=== PATIENT | female | born 1965 | race Hispanic/Latino ===

== ENCOUNTER 2019-12-27 17:36 | Inpatient (IN) | payer SELFPAY ==
[~2019-12-27] VITALS: Ht 157.5 cm; Wt 87.4 kg
[2019-12-27] MEDS ORDERED: METOPROLOL 5 MG/5 ML VIAL IV SCH (18:15)
[2019-12-27 18:25] LABS: BASO # 0.1 10^3/uL (0.0-0.2); EOS # 0.2 10^3/uL (0.0-0.5); EOS % 2.2 % (0.0-3.0); HEMATOCRIT 28.3 % (36.0-47.0); HEMOGLOBIN 8.5 g/dl (12.0-15.5); LYMPH % 28.3 % (24.0-44.0); MEAN CORPUSCULAR HEMOGLOBIN 27.6 pg (27.0-33.0); MEAN CORPUSCULAR VOLUME 91.9 fl (80.0-96.0); MONO # 0.5 10^3/uL (0.0-0.8); MONO % 6.3 % (0.0-5.0); NEUTROPHILS # 4.4 10^3/uL (1.5-8.5); NEUTROPHILS % 61.4 % (36.0-66.0); PLATELET COUNT, AUTOMATED 406 10^3/uL (150-450); RED BLOOD COUNT 3.08 10^6/uL (4.00-5.40); WHITE BLOOD COUNT 7.1 10^3/uL (4.0-10.0)
[2019-12-27 18:36] LABS: INR 1.04; PROTHROMBIN TIME 13.3 SECONDS (11.8-14.0)
[2019-12-27 18:37] LABS: PARTIAL THROMBOPLASTIN TIME 27.7 SECONDS (25.0-38.4)
[2019-12-27 18:40] LABS: D-DIMER QUANT < 270 ng/ml (<500)
[2019-12-27 18:55] LABS: ALBUMIN 3.7 GM/DL (3.2-5.2); ALT/SGPT 27 U/L (12-78); BILIRUBIN,DIRECT < 0.1 MG/DL (0.0-0.2); BILIRUBIN,TOTAL 0.2 MG/DL (0.2-1.0); BLOOD UREA NITROGEN 7 MG/DL (7-18); CALCIUM LEVEL 8.5 MG/DL (8.5-10.1); CARBON DIOXIDE LEVEL 29 MEQ/L (21-32); CHLORIDE LEVEL 106 MEQ/L (98-107); CK-MB VALUE MASS 1.1 NG/ML (<3.6); CPK CREATINE PHOSPHOKINASE 75 U/L (26-192); FREE T4 1.17 NG/DL (0.76-1.46); GLOMERULAR FILTRATION RATE > 60.0 (>51); GLUCOSE, FASTING 117 MG/DL (70-100); LIPASE 114 U/L (73-393); MB/CK RELATIVE INDEX 1.47 (< OR =4); NT-PRO BNP 586 PG/ML (<125); POTASSIUM SERUM 3.5 MEQ/L (3.5-5.1); SODIUM LEVEL 142 MEQ/L (136-145); TOTAL PROTEIN 6.9 GM/DL (6.4-8.2); TROPONIN I < 0.02 NG/ML (< 0.10)
--- NOTE | 2019-12-27 19:18 | REPVR ---
PROCEDURE INFORMATION: Exam: US Pelvis Complete, Transabdominal and US Pelvis, Transvaginal Exam date and time: 12/27/2019 6:56 PM Age: 54 years old Clinical indication: Other: Vag bleeding; Additional info: Menorrhagia x 1 year, menopause, fam HX uterine CA TECHNIQUE: Imaging protocol: Real-time transabdominal and transvaginal pelvic ultrasound (complete) with image documentation. Transvaginal imaging was used for better evaluation of the endometrium and adnexa. COMPARISON: No relevant prior studies available. FINDINGS: Uterus/cervix: 8.2 x 5 x 6.2 cm. Markedly thickened, heterogeneous endometrium, measuring up to 2.4 cm and demonstrating associated vascularity. Right ovary: Not identified. No adnexal mass. Left ovary: Not identified. No adnexal mass. Free fluid: None. Bladder: Normal. IMPRESSION: Markedly thickened, heterogeneous endometrium, measuring up to 2.4 cm and demonstrating associated vascularity. Findings are concerning for malignancy, although hyperplasia could produce a similar appearance. Gynecologic evaluation is urged. Electronically signed by: Tommie Brar On 12/27/2019 19:18:12 PM
[2019-12-27] MEDS ORDERED: lisinopriL 10 MG TAB PO ONE ×2 (19:30→21:00)
[2019-12-27] MEDS ORDERED: CARVedilol 12.5 MG TAB PO ONE (19:30)
[2019-12-27] MEDS ORDERED: ISOVUE-370 76% 100ML VIAL (Q9967) As Ordered ONE (19:39)
--- NOTE | 2019-12-27 20:05 | REPVR ---
PROCEDURE INFORMATION: Exam: CT Abdomen And Pelvis With Contrast Exam date and time: 12/27/2019 7:44 PM Age: 54 years old Clinical indication: Abnormal findings; Abnormal radiologic finding of the abdomen; Radiologic exam and body structure: US; Additional info: Poss uterine CA, thickened endometrium, heavy vag bleeding TECHNIQUE: Imaging protocol: Computed tomography of the abdomen and pelvis with intravenous contrast. Axial, coronal and sagittal reformatted images were created and reviewed. Radiation optimization: All CT scans at this facility use at least one of these dose optimization techniques: automated exposure control; mA and/or kV adjustment per patient size (includes targeted exams where dose is matched to clinical indication); or iterative reconstruction. Contrast material: ISOVUE 370; Contrast volume: 100 ml; Contrast route: IV; COMPARISON: US PELVIC NON-OB COMPLETE 12/27/2019 6:30 PM FINDINGS: Lungs: Scattered bibasilar pulmonary micronodules, measuring up to 3 mm. Liver: Mild hepatomegaly. Diffuse hepatic steatosis. Gallbladder and bile ducts: Status post cholecystectomy. Mild central biliary ductal dilatation, likely postsurgical. Pancreas: Unremarkable. Spleen: Unremarkable. Adrenals: Unremarkable. Kidneys and ureters: 1.9 x 1.6 cm simple, partially exophytic right renal cyst (no follow-up is indicated based upon the imaging appearance). 8 mm low-density left renal lesion, too small to characterize. No radiodense calculi. No hydronephrosis. Stomach and bowel: No bowel wall thickening. No obstruction. No pneumatosis. Appendix: Normal. Intraperitoneal space: No free fluid. No organized fluid collection. No free air. Vasculature: Unremarkable. No aneurysm. Lymph nodes: No pathologically enlarged lymph nodes. Bladder: Unremarkable. Reproductive: Markedly thickened, heterogeneous endometrium. Bones/joints: No acute osseous abnormality. Mild degenerative changes. Soft tissues: Small, fat containing umbilical hernia. IMPRESSION: 1. Markedly thickened, heterogeneous endometrium. Gynecologic evaluation is suggested. 2. Scattered bibasilar pulmonary micronodules, measuring up to 3 mm, possibly granulomata. Metastatic disease cannot be entirely excluded. 3. Additional findings, as above. COMMENTS: Consistent with the [employer]'s Incidental Findings Committee white paper (J Am Jh Radiol 2018): Any incidental cystic renal lesion classified in this report as too small to characterize or simple appearing is likely a benign cyst. No follow-up imaging is recommended for these lesions per consensus recommendations based on imaging criteria. Electronically signed by: Tommie Brar On 12/27/2019 20:04:53 PM
[2019-12-27] MEDS ORDERED: MAALOX 30 ML SUSP *UDC PO PRN (21:45)
[2019-12-27] MEDS ORDERED: ACETAMINOPHEN TAB 650MG DOSE (2X325MG) PO PRN (21:45)
[2019-12-27 22:29] LABS: FERRITIN 82 NG/ML (8-252); IRON (FE) 274 UG/DL (50-170); MAGNESIUM LEVEL 2.3 MG/DL (1.8-2.4); PHOSPHORUS LEVEL 2.8 MG/DL (2.5-4.9); TOTAL IRON BINDING CAPACITY 356 UG/DL (250-450)
--- NOTE | 2019-12-27 22:57 | HPEPDOC ---
General Date of Admission Dec 27, 2019 at 21:27 Date of Service: Dec 27, 2019 Chief Complaint The patient is a 54-year-old female admitted with a reason for visit of Acute Dyspnea. Source: Patient Exam Limitations: No limitations Timing/Duration: Other (1 year and 4 months) Severity: Moderate History of Present Illness Mrs. Ramos is a 54-year-old female who presented to the ED with a menstrual cycle that has lasted one year and 4 months, palpitations, shortness of breath. Patient reported that she has not been able to seek medical care since 2012, when her was diagnosed with ALS; he eventually in 2014. Then for 1 year, she cared of her mother who was diagnosed with uterine cancer; she has since too. Patient has been experiencing heavy painful periods, describing blood clots with instruction. She has tried home remedies including shakes and vitamins, for the past week they have not been helping to slow the bleeding. Since Saturday She noted she became out of breath with palpitations when having a bowel movement. Episodes of shortness of breath and palpitations lasted 1-2 hours, eased when she relaxed with music. Saturday she noted significant fatigue and headache. Naprosyn and heat helped with the abdominal pain and the headache. Daughter advised her to come to the ED as she appeared very pale and unwell to her. Patient reported she has use adult diapers in the past due to heavy bleeding. Of note, patient has reported that she has gained weight since 2014. Patient's mother had fibroids in her 50s, requiring myomectomy. Home Medications No Active Prescriptions or Reported Meds Allergies Coded Allergies: No Known Allergies (Unverified , 12/27/19) Past Medical History Medical History Unremarkable Surgical History Two planned C-sections. Cholecystectomy. Remote history of left Bartholin's gland removal Family History Significant Family History: Cancer (father ( 2011)pancreatic cancer. Mother ()uterine cancer), Diabetes (mother) Social History * Smoker: Denies Alcohol: occationally Drugs: denies Recent Travel/Sick Contacts: Denies: Recent travel, Recent sick contacts A-FIB/[facility] A-FIB History Current/History of A-Fib/PAF?: No Current PO Anticoag Therapy: No Review of Systems Constitutional: Denies: Chills, Fever, Night Sweats Eyes: Denies: Pain ENT: Reports: Head Aches; Denies: Ear Pain, Dysphagia Skin: Denies: Rash Pulmonary: Denies: Dyspnea, Cough Cardiovascular: Reports: Palpitations; Denies: Chest Pain, Orthopnea, Paroxysmal Noc. Dyspnea, Lt Headedness Gastrointestinal: Reports: Abdominal Pain; Denies: Nausea, Vomiting, Diarrhea, Constipation Genitourinary: Denies: Dysuria Hematologic: Reports: Bleeding Excessively; Denies: Bruising Musculoskeletal: Denies: Neck Pain, Back Pain, Joint Pain, Muscle Pain, Spasms Neurological: Denies: Weakness, Numbness Psych: Reports: Mood Normal; Denies: Depression, Memory Issues Physical Examination General Exam: Positive: Alert, Cooperative, No Acute Distress Eye Exam: Positive: PERRLA, Conjunctiva & lids normal, EOMI; Negative: Sclera icteric ENT Exam: Positive: Atraumatic, Mucous membr. moist/pink, Pharynx Normal Neck Exam: Positive: Supple; Negative: thyromegaly Chest Exam: Positive: Clear to auscultation, Normal air movement Heart Exam: Positive: Tachycardic, Regular Rhythm, Normal S1, Normal S2; Negative: Murmurs, Rubs Telemetry: Positive: No significant arrhythmia Abdomen Exam: Positive: Normal bowel sounds, Soft; Negative: Tenderness, Hepatospenomegaly Extremity Exam: Positive: Normal pulses; Negative: Clubbing, Cyanosis, Edema, Tenderness, Swelling Skin Exam: Positive: Nl turgor and temperature; Negative: Breakdown, Lesion Neuro Exam: Positive: Normal Speech, Strength at 5/5 X4 ext, Cranial Nerves 3- 12 NL Psych Exam: Positive: Mood NL, Oriented x 3 Vital Signs Vital Signs Date Time Temp Pulse Resp B/P (MAP) Pulse Ox O2 Delivery O2 Flow Rate FiO2 12/27/19 21:30 69 148/74 (98) 98 12/27/19 21:00 19 Room Air 12/27/19 17:37 98.5 Laboratory Data Labs 24H Laboratory Tests 2 12/27/19 18:15: Immature Granulocyte % (Auto) 0.8, Neutrophils (%) (Auto) 61.4, Lymphocytes (%) (Auto) 28.3, Monocytes (%) (Auto) 6.3H, Eosinophils (%) (Auto) 2.2, Basophils (%) (Auto) 1.0, Neutrophils # (Auto) 4.4, Lymphocytes # (Auto) 2.0, Monocytes # (Auto) 0.5, Eosinophils # (Auto) 0.2, Basophils # (Auto) 0.1, Nucleated Red Blood Cells % (auto) 0.8H, Prothrombin Time 13.3, Prothromb Time International Ratio 1.04, Activated Partial Thromboplast Time 27.7, D-Dimer, Quantitative < 270, Anion Gap 7L, Glomerular Filtration Rate > 60.0, Calcium Level 8.5, Total Bilirubin 0.2, Direct Bilirubin < 0.1, Aspartate Amino Transf (AST/SGOT) 28, A lanine Aminotransferase (ALT/SGPT) 27, Alkaline Phosphatase 101, Total Creatine Kinase 75, Creatine Kinase MB 1.1, Creatine Kinase MB Relative Index 1.47, Troponin I < 0.02, WP-Czg-M-Type Natriuretic Peptide 586H, Total Protein 6.9, Albumin 3.7, Albumin/Globulin Ratio 1.16, Lipase 114, Thyroid Stimulating Hormone (TSH) 4.850H, Free Thyroxine 1.17 CBC/BMP Laboratory Tests 12/27/19 18:15 Assessment/Plan Mrs. Ramos is a 54-year-old female who presented to the ED with a menstrual cycle that has lasted one year and 4 months, palpitations, shortness of breath. Her past medical history is unremarkable. #1. Hypertension, new onset. Possibly secondary to chronic anemia, psychosocial stressors Given lisinopril 10 mg and carvedilol 12.5 mg by mouth, metoprolol 5 mg IV in the ED. EKGsinus tachycardia; echo scheduled tomorrow 48 hour telemetry ordered Troponin negative TSH and free T4 normal Continue lisinopril 20 mg and carvedilol 12.5 mg. Medications and possible side effects discussed with the patient. Vitals every 4 hours #2 Anemia. Likely secondary to menometrorrhagia. US PELVIC NON-OB COMPLETE "IMPRESSION: Markedly thickened, heterogeneous endometrium, measuring up to 2.4 cm and demonstrating associated vascularity. Findings are concerning for malignancy, although hyperplasia could produce a similar appearance. Gynecologic evaluation is urged." CT ABD/PEL W/IV CONTRAST ONLY "IMPRESSION: 1. Markedly thickened, heterogeneous endometrium. Gynecologic evaluation is suggested. 2. Scattered bibasilar pulmonary micronodules, measuring up to 3 mm, possibly granulomata. Metastatic disease cannot be entirely excluded. 3. Additional findings, as above." Dr. Kinsey consulted by ED. Per patient, she is to have a biopsy, based on imaging findings. Hgb equal 8.5, no indication for transfusion. Serial CBCs to monitor. Mechanical DVT prophylaxis ordered - Anemia panel - pending. Normal coags. Plan / VTE VTE Prophylaxis Ordered?: Yes (mechanical) Attending Note Attending Note Ms Ramos is 54-year-old with a history of anemia, who will be admitted for evaluation of dyspnea possibly due to acute CHF and acute on chronic anemia. # Acute on Chronic Anemia 2/2. Abnormal Uterine Bleeding - NPO in case she needs a uterine biopsy, follow-up serial hemoglobin target >7 & iron panel # Possible CHF -f/u strict I's and O's, daily weights and follow up on a 2-D echo, TSH, serial troponins, lisinopril & coreg # Uncontrolled HTN - lisinopril w coreg Rest per Sonu's H&P JACK BOWLING PA-C Dec 27, 2019 22:57 AUTUMN CARO MD Dec 28, 2019 01:22
[2019-12-27 23:07] VITALS: BP 132/78
[2019-12-27] MEDS: DOCUSATE SODIUM 100 MG CAP PO SCH (23:26)
[2019-12-28] VITALS (9 sets, daily range): BP systolic 108–151; BP diastolic 66–83
--- NOTE | 2019-12-28 03:22 | REP ---
Clinical: Acute chest pain . Comparison: None . Findings: The mediastinum and cardiac silhouette are stable and within normal limits for portable technique. The lung hussein are clear without acute consolidation, effusion, or pneumothorax. Skeletal structures are intact. Impression: No acute cardiopulmonary process appreciated. Electronically Signed by Rickey Persaud MD 12/28/2019 03:14 A
--- NOTE | 2019-12-28 06:12 | CR ---
DATE OF CONSULTATION: 12/27/2019 CONSULTING SERVICE: Gynecology. HISTORY: 54-year-old, (G) 2, para (P) 2, female who presents with approximately one year of intermittent heavy vaginal bleeding with clots. She gets strong cramping when she is having heavy bleeding. The bleeding is unpredictable. Prior to this, she had gone months without having a period and also had hot flashes. She did not seek any medical care because she was caring for a sick family member. She also admits that she has a mother who from endometrial cancer and she was somewhat in denial of that possibility. She gets short of breath with standing or walking any short distance, which prompted her to come to the emergency room. MEDICAL HISTORY: Noncontributory. SURGICAL HISTORY: 1. section times two. 2. Cholecystectomy. 3. Excision of Bartholin gland abscess. ALLERGIES: None. SOCIAL HISTORY: The patient is going to be living in [place]. Her is from amyotrophic lateral sclerosis (ALS). She denies cigarettes, alcohol or drug use. FAMILY HISTORY: Mother from endometrial cancer. PHYSICAL EXAMINATION: Blood pressure 193/99. Pulse 83. Respiratory rate 18. Oxygen saturation 98%. She is in no apparent distress. Head and Neck Exam: Normal. Lungs: Clear. Heart: Regular rate and rhythm. Abdomen: Nontender. Soft. Nondistended. No masses. Extremities: Nontender. Pelvic Exam: Deferred. Ultrasound revealed a 2.4 cm heterogeneous endometrial stripe, but otherwise normal uterus. CT scan significant only for small pulmonary nodules which could represent granulomata. LABS: Hemoglobin 8.5 g/dL. ASSESSMENT: 54-year-old, G2, P2 female with postmenopausal bleeding and has also severe hypertension and anemia. PLAN: The patient should be admitted for blood transfusion. Recommend administering progesterone to help acutely stop bleeding. The patient will need a biopsy of the endometrium in order to rule out the possibility of endometrial cancer. Would likely recommend hysteroscopy procedure in the operating room during this hospitalization in order to obtain an adequate sample. Will continue to follow. Obviously hypertension will need to be managed.
[2019-12-28 06:14] LABS: HEMATOCRIT 26.7 % (36.0-47.0); HEMOGLOBIN 7.8 g/dl (12.0-15.5); MEAN CORPUSCULAR HEMOGLOBIN 27.1 pg (27.0-33.0); MEAN CORPUSCULAR HGB CONC 29.2 g/dl (32.0-36.5); MEAN CORPUSCULAR VOLUME 92.7 fl (80.0-96.0); PLATELET COUNT, AUTOMATED 408 10^3/uL (150-450); RED BLOOD COUNT 2.88 10^6/uL (4.00-5.40); WHITE BLOOD COUNT 7.4 10^3/uL (4.0-10.0)
[2019-12-28 06:36] LABS: BLOOD UREA NITROGEN 7 MG/DL (7-18); CALCIUM LEVEL 8.8 MG/DL (8.5-10.1); CARBON DIOXIDE LEVEL 28 MEQ/L (21-32); CHLORIDE LEVEL 104 MEQ/L (98-107); CREATININE FOR GFR 0.89 MG/DL (0.55-1.30); GLOMERULAR FILTRATION RATE > 60.0 (>51); GLUCOSE, FASTING 125 MG/DL (70-100); MAGNESIUM LEVEL 2.7 MG/DL (1.8-2.4); SODIUM LEVEL 141 MEQ/L (136-145)
[2019-12-28 07:51] LABS: VITAMIN B12 LEVEL 645 PG/ML (247-911)
[2019-12-28 07:56] LABS: FOLATE 23.3 NG/ML (>5.4)
[2019-12-28] MEDS: DOCUSATE SODIUM 100 MG CAP PO SCH ×2 (11:26→20:21)
[2019-12-28] MEDS: lisinopriL 20 MG TAB PO SCH (11:26)
[2019-12-28] MEDS: CARVedilol 12.5 MG TAB PO SCH ×2 (11:28→20:23)
[2019-12-28] MEDS: MEGESTROL 40 MG TAB PO SCH ×2 (11:28→20:22)
--- NOTE | 2019-12-28 19:39 | ECHO ---
DATE OF PROCEDURE: 12/28/2019 REFERRING PHYSICIAN: INDICATION: Dyspnea HEIGHT: 158 cm WEIGHT: 87 kg. DIMENSIONS: IVS - 1.3 LV - 3.9 LVPW - 1.3 LA - 4.5 Aorta - 2.7 Mitral E-wave velocity - 85, A-wave -101 E prime septal - 5.2 E prime lateral - 5.2 FINDINGS: The study is of fair technical quality especially in parasternal views. Acceptable apical and subcostal views. The patient is in sinus rhythm. Left ventricle is normal size and has hyperdynamic contractility, I estimate LVEF 65-70%. Mild left ventricular hypertrophy is present. Right ventricle appears normal. Left atrium is moderately enlarged. Right atrium is likely normal size. All four cardiac valves were reasonably well seen and appear normal. No pericardial effusion is noted. Inferior vena cava was not well seen. Aortic root and aortic arch appear normal. Abdominal aorta was not well visualized. Doppler interrogation reveals competent aortic valve. There is mild mitral and mild tricuspid insufficiency. Calculated pulmonary artery pressures on upper limits of normal values assuming normal central venous pressure. Trace pulmonic insufficiency seen. Mitral inflow pattern and tissue Doppler imaging of mitral annulus reveal grade 1 diastolic dysfunction. CONCLUSION 1. Study is of fair technical quality, the patient is in sinus rhythm. 2. Normal LV size with mild LVH, hyperdynamic LV systolic function and grade 1 diastolic dysfunction. 3. No hemodynamically significant valvular disease. 4. Unable to estimate central venous pressure but likely normal or mildly elevated pulmonary artery pressure. COMMENT: Subacute bacterial endocarditis (SBE) prophylaxis is not recommended. The study is consistent with hypertensive heart disease.
[2019-12-28] MEDS: RAMELTEON 8 MG TAB (ROZEREM) PO SCH (20:22)
--- NOTE | 2019-12-28 23:53 | IPNPDOC ---
Date Seen The patient was seen on 12/28/19. Progress Note SUBJECTIVE: Continued bleeding but not increased from normal. Ordered 1 unit PRBC today, f/u repeat CBC. Denies lightheadedness, dizziness, shortness of breath, n/v/d. OBJECTIVE: VITAL SIGNS: Please see below PHYSICAL EXAMINATION: CONSTITUTIONAL: No acute distress, resting comfortably, AAO x 3 EYES: PERRLA, EOM intact HENT, MOUTH: Normocephalic, atraumatic, moist mucous membranes NECK: SUPPLE, no JVD, no lymphadenopathy, no carotid bruit CV: Regular rate and rhythm, S1S2 normal, no murmurs/rubs/gallops RESPIRATORY: Clear to auscultation bilaterally, no rales/rhonchi/wheezes GI: obese abdomen, BS positive in 4 quadrants, soft, nontender, nondistended, no rebound or guarding, no organomegaly : Deferred MUSCULOSKELETAL: Normal ROM. No cyanosis, clubbing, swelling, joint deformity, extremity edema INTEGUMENTARY: Intact, no rashes, no lesions, no erythema NEUROLOGIC: Cranial Nerves II-XII are intact, no focal deficits PSYCHIATRIC: Mood and affect are normal CURRENT MEDICATIONS: Please see below LABORATORY DATA: Please see below IMAGING: US PELVIC NON-OB COMPLETE Markedly thickened, heterogeneous endometrium, measuring up to 2.4 cm and demonstrating associated vascularity. Findings are concerning for malignancy, although hyperplasia could produce a similar appearance. Gynecologic evaluation is urged." ASSESSMENT: Pt is a 54-year-old female admitted for acute symptomatic anemia due to abnormal uterine bleeding, requiring endometrial biopsy and possible hysterectomy. PLAN: 1. Acute on Chronic Anemia 2/2 Abnormal Uterine Bleeding. Ordering 1 unit PRBC, f/u post transfusion H/H. Ob consulted for endometrial biopsy, possible hysterectomy. Medically this patient dose not have any concering history that would hold her back from surgery. Goal Hgb >7. F/u iron studies, daily CBC. C/w progesterone per Ob. 2. Possible CHF . Echo not dictated. C/w ACEi, BB, strict I's and O's, daily weights and follow up on a 2-D echo. 3. HTN. Improved with lisinopril w coreg. 4. DVT Px. SCDs, teds. DISPOSITION: patient is currently under inpatient status. Plan is endometrial biopsy and possible hysterectomy this Admission. VS, I&O, 24H, Fishbone Vital Signs/I&O Vital Signs Date Time Temp Pulse Resp B/P (MAP) Pulse Ox O2 Delivery O2 Flow Rate FiO2 12/28/19 22:00 98.2 73 20 141/81 (101) 96 12/28/19 18:00 Room Air I&O- Last 24 Hours up to 6 AM 12/28/19 06:00 Intake Total 0 ml Output Total 0 ml Balance 0 ml Laboratory Data 24H LABS Laboratory Tests 2 12/27/19 23:51: Troponin I < 0.02 12/28/19 05:34: Troponin I < 0.02, Nucleated Red Blood Cells % (auto) 0.8H, Anion Gap 9, Glomerular Filtration Rate > 60.0, Calcium Level 8.8, Magnesium Level 2.7H, Vitamin B12 Level 645 CBC/BMP Laboratory Tests 12/27/19 23:51 12/28/19 05:34 Current Medications Current Medications Medications (Trade) Dose Ordered Sig/Kathrine Route PRN Reason Start Time Stop Time Status Last Admin Dose Admin Acetaminophen (Tylenol Tab) 650 mg Q4H PRN PO PAIN OR FEVER 12/27/19 21:45 Al Hydrox/Mg Hydrox/Simethicone (Mylanta) 30 ml DAILY PRN PO DYSPEPSIA 12/27/19 21:45 Carvedilol (COReg) 12.5 mg BID PO 12/28/19 09:00 12/28/19 20:23 Docusate Sodium (Colace) 100 mg BID PO 12/27/19 21:00 12/28/19 20:21 Home Med (Med Rec Complete!) ASDIRECTED XX 12/27/19 20:30 12/27/19 20:20 DC Lisinopril (Prinivil) 20 mg DAILY PO 12/28/19 09:00 12/28/19 11:26 Megestrol Acetate (Megace) 40 mg BID PO 12/28/19 09:00 12/28/19 20:22 Metoprolol Tartrate (Lopressor) 5 mg Q5M IV 12/27/19 18:15 12/27/19 18:20 DC Ramelteon (Rozerem) 8 mg QHS PO 12/28/19 21:00 12/28/19 20:22 Allergies Coded Allergies: No Known Allergies (Unverified , 12/27/19) Vilma Jain MD Dec 28, 2019 23:53
[2019-12-29] VITALS (11 sets, daily range): BP systolic 121–144; BP diastolic 62–91
[2019-12-29 01:08] LABS: HEMATOCRIT 26.5 % (36.0-47.0); HEMOGLOBIN 8.2 g/dl (12.0-15.5)
[2019-12-29 06:03] LABS: HEMATOCRIT 26.3 % (36.0-47.0); HEMOGLOBIN 8.2 g/dl (12.0-15.5); MEAN CORPUSCULAR HEMOGLOBIN 28.6 pg (27.0-33.0); MEAN CORPUSCULAR HGB CONC 31.2 g/dl (32.0-36.5); MEAN CORPUSCULAR VOLUME 91.6 fl (80.0-96.0); PLATELET COUNT, AUTOMATED 323 10^3/uL (150-450); RED BLOOD COUNT 2.87 10^6/uL (4.00-5.40); WHITE BLOOD COUNT 7.6 10^3/uL (4.0-10.0)
[2019-12-29 06:12] LABS: BLOOD UREA NITROGEN 12 MG/DL (7-18); CALCIUM LEVEL 8.3 MG/DL (8.5-10.1); CARBON DIOXIDE LEVEL 29 MEQ/L (21-32); CHLORIDE LEVEL 109 MEQ/L (98-107); CREATININE FOR GFR 0.76 MG/DL (0.55-1.30); GLOMERULAR FILTRATION RATE > 60.0 (>51); GLUCOSE, FASTING 105 MG/DL (70-100); POTASSIUM SERUM 3.4 MEQ/L (3.5-5.1); SODIUM LEVEL 143 MEQ/L (136-145)
[2019-12-29] MEDS: lisinopriL 20 MG TAB PO SCH (08:34)
[2019-12-29] MEDS: CARVedilol 12.5 MG TAB PO SCH ×2 (08:35→20:14)
[2019-12-29] MEDS: MEGESTROL 40 MG TAB PO SCH ×2 (08:41→20:14)
[2019-12-29] MEDS: DOCUSATE SODIUM 100 MG CAP PO SCH ×2 (08:41→20:14)
[2019-12-29] MEDS ORDERED: POTASSIUM CHLORIDE 10 MEQ SR TABLET PO ONE (09:00)
--- NOTE | 2019-12-29 09:02 | ECGEPIP ---
[facility] - ED Test Date: 2019-12-27 Pat Name: JOSELINE ORTIZ Department: Room: - Gender: Female Zookeeper: kayellis : 1965 Requested By: Ronnie Roman Order Number: [id number] Reading MD: Agnes Myers Measurements Intervals [place] Rate: 101 P: 51 SC: 182 QRS: 25 QRSD: 90 T: 94 QT: 352 QTc: 458 Interpretive Statements SINUS TACHYCARDIA MINIMAL VOLTAGE CRITERIA FOR LVH, CONSIDER NORMAL VARIANT NONSPECIFIC ST & T-WAVE ABNORMALITY NO PRIOR Electronically Signed on 12-29-2019 9:01:57 EDT by Agnes Myers
[2019-12-29] MEDS ORDERED: dexameTHASONE 4 MG/ML 1ML VIAL (J1100 PER 1MG) As Ordered ONE (11:25)
[2019-12-29] MEDS ORDERED: ONDANSETRON 4MG/2ML VIAL (J2405) As Ordered ONE (11:25)
[2019-12-29] MEDS ORDERED: fentaNYL 100 MCG/2 ML INJECTION (J3010) As Ordered ONE (11:25)
[2019-12-29] MEDS ORDERED: MIDAZOLAM INJ 2 MG/2 ML VIAL (J2250) As Ordered ONE (11:25)
[2019-12-29] MEDS ORDERED: propofoL 200 MG/20 ML VIAL As Ordered ONE (11:26)
[2019-12-29] MEDS ORDERED: LIDOCAINE 2% INJ 100 MG/5 ML SDV (FOR ANES.) As Ordered ONE (11:26)
--- NOTE | 2019-12-29 11:34 | IPNPDOC ---
Subjective Date Seen The patient was seen on 12/29/19. Subjective Chief Complaint/HPI Patient is comfortable, feels that her mind is more sharp pains. She has a little bit more energy after the blood transfusion Awaiting a HOME MANAGER follow-up for possible endometrial biopsy or hysterectomy General: Denies: ROS Unobtainable, Chills, Night Sweats, Fatigue, Malaise, Normal Appetite, Other Symptoms Constitutional: Denies: Chills, Fever, Malaise, Night Sweats, Weakness, Fatigue, Weight Loss, Lethargy, Other Pulmonary: Denies: Dyspnea, Cough, Pleuritic Chest Pain, Other Symptoms Cardiovascular: Denies: Chest Pain, Palpitations, Orthopnea, Paroxysmal Noc. Dyspnea, Edema, Lt Headedness, Other Symptoms Hematologic: Denies: Bruising, Bleeding Excessively, Petecchia, Purpura, Enlarged Lymph Nodes, Other Hematologic Endocrine: Denies: Polydipsia, Polyphagia, Polyuria, Heat Intolerance, Cold Intolerance, Other Endocrine Sx Musculoskeletal: Denies: Neck Pain, Back Pain, Shoulder Pain, Arm Pain, Hand Pain, Leg Pain, Foot Pain, Joint Pain, Muscle Pain, Spasms, Other Symptoms Neurological: Denies: Weakness, Numbness, Incoordination, Change in speech, Confusion, Seizures, Other Symptoms Psych: Denies: Mood Normal, Anxiety, Depression, Memory Issues, Thoughts of Self Harm, Anger, Thoughts of Harming Other, Other Psych Objective Physical Examination General Exam: Positive: Alert Eye Exam: Negative: Sclera icteric Neck Exam: Positive: Supple Chest Exam: Positive: Clear to auscultation, Normal air movement Abdomen Exam: Positive: Normal bowel sounds, Soft Extremity Exam: Positive: Normal pulses Skin Exam: Positive: Nl turgor and temperature Neuro Exam: Positive: Normal Speech, Strength at 5/5 X4 ext, Cranial Nerves 3- 12 NL Assessment /Plan Problems (1) Acute on chronic blood loss anemia Status: Acute Problem Text: Acute on chronic blood loss anemia secondary to abnormal uterine bleeding , Hemoglobin is 8.2 and hematocrit 20.3 after transfusion of 1 unit of PRBC Patient is awaiting HOME MANAGER decision regarding endometrial biopsy versus hyst erectomy Monitor CBC and transfuse as needed Other as per HOME MANAGER. Recommendations (2) Hypokalemia Status: Acute Problem Text: Potassium supplement ordered BMP in a.m. Plan/VTE VTE Prophylaxis Ordered?: Yes VS, I&O, 24H, Fishbone Vital Signs/I&O Vital Signs Date Time Temp Pulse Resp B/P (MAP) Pulse Ox O2 Delivery O2 Flow Rate FiO2 12/29/19 10:30 99.5 12/29/19 10:00 66 14 140/74 (96) 99 Room Air I&O- Last 24 Hours up to 6 AM 12/29/19 06:00 Intake Total 980 ml Output Total 1100 ml Balance -120 ml Laboratory Data 24H LABS Laboratory Tests 2 12/29/19 05:28: Nucleated Red Blood Cells % (auto) 0.0, Anion Gap 5L, Glomerular Filtration Rate > 60.0, Calcium Level 8.3L CBC/BMP Laboratory Tests 12/29/19 01:03 12/29/19 05:28 MIGUELINA JUAREZ MD Dec 29, 2019 11:34
[2019-12-29] MEDS ORDERED: ePHEDrine SULFATE 25 MG/5 ML(5MG/ML) SYRINGE As Ordered ONE (12:24)
[2019-12-29] MEDS ORDERED: KETOROLAC 60 MG/2 ML VIAL (J1885) As Ordered ONE (12:34)
[2019-12-29] MEDS ORDERED: LR 1,000 ML IV SCH (13:15)
[2019-12-29] MEDS ORDERED: oxyCODONE 5MG TAB PO PRN (13:15)
[2019-12-29] MEDS ORDERED: ONDANSETRON 4MG/2ML VIAL (J2405) IV PRN (13:15)
[2019-12-29] MEDS ORDERED: fentaNYL 100 MCG/2 ML INJECTION (J3010) IV PRN (13:15)
--- NOTE | 2019-12-29 17:28 | RO ---
DATE OF PROCEDURE: 12/29/2019 PREPROCEDURE DIAGNOSIS: Postmenopausal bleeding. POSTPROCEDURE DIAGNOSIS: Postmenopausal bleeding. PROCEDURE: Hysteroscopy, dilation and curettage (D and C). SURGEON: Alverto Kinsey MD [employer]OL [employer] OFFICER: ANESTHESIA: LMA. ESTIMATED BLOOD LOSS: 100 mL. FINDINGS: Moderate endometrial polyp protruding through the cervix. Thick irregular endometrial tissue concerning for carcinoma. Normal sized uterus. DESCRIPTION OF PROCEDURE: The patient was taken to the operating room where LMA anesthesia was induced. She was prepped and draped in a sterile fashion in the dorsal lithotomy position. The bladder was emptied with a catheter. A speculum was placed in the vagina. The anterior lip of the cervix was grasped with a tenaculum. The polyp forceps was used to grasp the polyp protruding through the cervical os, which was twisted off at its base. The hysteroscope was placed through the internal os after dilation of the cervix. Visualization of the endometrial cavity revealed the findings noted above. The hysteroscope was removed. Sharp curettage was performed. A moderately large amount of tissue was removed. There was no evidence of endometrial polyp at the end of the procedure. All instruments were removed. Sponge, instrument counts were correct.
[2019-12-29] MEDS: RAMELTEON 8 MG TAB (ROZEREM) PO SCH (20:13)
[2019-12-30 02:00] VITALS: BP 140/75
[2019-12-30 06:00] VITALS: BP 137/73
[2019-12-30] MEDS ORDERED: FERR325T3 PO (07:40)
[2019-12-30] MEDS: MEGESTROL 40 MG TAB PO SCH (08:40)
[2019-12-30] MEDS: lisinopriL 20 MG TAB PO SCH (08:40)
[2019-12-30 08:41] VITALS: BP 137/73
[2019-12-30] MEDS: DOCUSATE SODIUM 100 MG CAP PO SCH (08:41)
[2019-12-30] MEDS: CARVedilol 12.5 MG TAB PO SCH (08:41)
[2019-12-30] MEDS ORDERED: MEGE40TA PO (09:33)
--- NOTE | 2019-12-30 10:31 | DS.PDOC ---
Discharge Summary General Date of Admission Dec 27, 2019 at 21:27 Date of Discharge 12/30/19 Discharge Summary PROCEDURES PERFORMED DURING STAY: None. ADMITTING DIAGNOSES: 1. Acute blood loss anemia, abnormal uterine bleeding. DISCHARGE DIAGNOSES: 1. Acute blood loss anemia, abnormal uterine bleeding. COMPLICATIONS/CHIEF COMPLAINT: Acute Dyspnea, Post Menopausal Bleeding. HISTORY OF PRESENT ILLNESS: Mrs. Ramos is a 54-year-old female who presented to the ED with a menstrual cycle that has lasted one year and 4 months, palpitations, shortness of breath. Patient reported that she has not been able to seek medical care since 2012, when her was diagnosed with ALS; he eventually in 2014. Then for 1 year, she cared of her mother who was diagnosed with uterine cancer; she has since too. Patient has been experiencing heavy painful periods, describing blood clots with instruction. She has tried home remedies including shakes and vitamins, for the past week they have not been helping to slow the bleeding. Since Saturday She noted she became out of breath with palpitations when having a bowel movement. Episodes of shortness of breath and palpitations lasted 1-2 hours, eased when she relaxed with music. Saturday she noted significant fatigue and headache. Naprosyn and heat helped with the abdominal pain and the headache. Daughter advised her to come to the ED as she appeared very pale and unwell to her. Patient reported she has use adult diapers in the past due to heavy bleeding. Of note, patient has reported that she has gained weight since 2014. Patient's mother had fibroids in her 50s, requiring myomectomy.. HOSPITAL COURSE: Patient was admitted with acute on chronic blood loss anemia secondary to abnormal uterine bleeding . She did receive a transfusion of one PRBC, which improved her hemoglobin and hematocrit Patient was seen by HAL[facility] BUT[facility] and she was taken to or where she had hysterectomy done I discussed with [facility]. Patient is clinically stable. Her H&H is stable and she has been cleared for discharge home to follow up with [facility] as outpatient Ferrous sulfate 325 mg by mouth twice a day also has been prescribed on Patient will be discharged home today to follow with [facility] as an outpatient . DISCHARGE MEDICATIONS: Please see below. ALLERGIES: Please see below. PHYSICAL EXAMINATION ON DISCHARGE: VITAL SIGNS: Please see below. GENERAL: Within normal limits HEENT: [PERRLA. Extraocular muscles intact NECK: Supple CARDIOVASCULAR EXAMINATION: S1, S2, regular RESPIRATORY EXAMINATION: Clear to A&P ABDOMINAL EXAMINATION: Benign EXTREMITIES: No clubbing, cyanosis, edema SKIN: Normal NEUROLOGICAL EXAMINATION: . No focal motor sensory deficit PSYCHIATRIC EXAMINATION: Normal LABORATORY DATA: Please see below. IMAGING: Not applicable PROGNOSIS: Good ACTIVITY: As tolerated. DIET: As tolerated DISCHARGE PLAN: Home DISPOSITION: Home, Self-Care. DISCHARGE INSTRUCTIONS: 1. As per discharge instructions. ITEMS TO FOLLOWUP ON ON OUTPATIENT: 1. Follow with [facility] in one week. DISCHARGE CONDITION: Stable. TIME SPENT ON DISCHARGE: 25 minutes. Vital Signs/I&Os Vital Signs Date Time Temp Pulse Resp B/P (MAP) Pulse Ox O2 Delivery O2 Flow Rate FiO2 12/30/19 08:41 72 137/73 12/30/19 06:00 96.2 16 97 Room Air I&O- Last 24 Hours up to 6 AM 12/30/19 06:00 Intake Total 2920 ml Output Total 1900 ml Balance 1020 ml Discharge Medications Scheduled Ferrous Sulfate (Ferrous Sulfate) 325 Mg Tablet.dr, 1 TAB PO BID Megestrol Acetate (Megestrol Acetate) 40 Mg Tablet, 1 TAB PO BID Allergies Coded Allergies: No Known Allergies (Unverified , 12/27/19) MIGUELINA JUAREZ MD Dec 30, 2019 10:31
== END 2019-12-30 08:55 | disposition home or self-care (01) | DRG 517 ==
LOC: M ED 17:36 → M ED INP 21:27 → ENRESERVDT 22:34 → ENRESERVTM 22:34 → M MSPAV 23:07
PROVIDERS: ADMIT Internal Medicine; ATTEND Internal Medicine
PROC: 0UBC7ZX Excision of Cervix, Via Natural or Artificial Opening, Diagnostic (ICD-10-PCS; 2019-12-29)
PROC: 0UDB8ZZ Extraction of Endometrium, Via Natural or Artificial Opening Endoscopic (ICD-10-PCS; principal; 2019-12-29 11:45)
DX: C54.1 Malignant neoplasm of endometrium (principal); D62 Acute posthemorrhagic anemia; I10 Essential (primary) hypertension; N84.0 Polyp of corpus uteri; N92.4 Excessive bleeding in the premenopausal period; Z80.49 Family history of malignant neoplasm of other genital organs; Z80.0 Family history of malignant neoplasm of digestive organs; Z83.3 Family history of diabetes mellitus; R91.8 Other nonspecific abnormal finding of lung field; E87.6 Hypokalemia

== ENCOUNTER → 2020-02-15 | Outpatient (REF) | payer MEDICAID, OTHER ==
[~2020-02-15] MED LIST: FERR325T3 PO; MEGE40TA PO
[2020-02-15 17:03] LABS: HEMATOCRIT 43.5 % (36.0-47.0); MEAN CORPUSCULAR HEMOGLOBIN 28.4 pg (27.0-33.0); MEAN CORPUSCULAR HGB CONC 32.2 g/dl (32.0-36.5); MEAN CORPUSCULAR VOLUME 88.2 fl (80.0-96.0); PLATELET COUNT, AUTOMATED 404 10^3/uL (150-450); RED BLOOD COUNT 4.93 10^6/uL (4.00-5.40); WHITE BLOOD COUNT 10.6 10^3/uL (4.0-10.0)
[2020-02-15 17:28] LABS: ALBUMIN 4.4 GM/DL (3.2-5.2); BILIRUBIN,TOTAL 0.3 MG/DL (0.2-1.0); CALCIUM LEVEL 9.8 MG/DL (8.5-10.1); CREATININE FOR GFR 1.04 MG/DL (0.55-1.30); GLOMERULAR FILTRATION RATE 58.6 (>51); POTASSIUM SERUM 4.8 MEQ/L (3.5-5.1); TOTAL PROTEIN 8.2 GM/DL (6.4-8.2)
== END ==
LOC: M SFHCPLAZ 14:54
PROVIDERS: ATTEND Nurse Practitioner Family
DX: Z86.2 Personal history of diseases of the blood and blood-forming organs and certain disorders involving the immune mechanism (principal); I10 Essential (primary) hypertension

== ENCOUNTER → 2020-05-30 | Outpatient (CLI) | payer OTHER ==
[2020-05-30 13:43] LABS: BLOOD UREA NITROGEN 16 MG/DL (7-18); CALCIUM LEVEL 9.2 MG/DL (8.5-10.1); CARBON DIOXIDE LEVEL 28 MEQ/L (21-32); CHLORIDE LEVEL 107 MEQ/L (98-107); CHOLESTEROL LEVEL 187 MG/DL (<200); CHOLESTEROL RISK RATIO 4.155 (<5); CREATININE FOR GFR 0.92 MG/DL (0.55-1.30); GLOMERULAR FILTRATION RATE > 60.0 (>51); GLUCOSE, FASTING 118 MG/DL (70-100); HDL CHOLESTEROL 45 MG/DL (>40); LDL CHOLESTEROL 111 MG/DL (<100); MAGNESIUM LEVEL 2.3 MG/DL (1.8-2.4); NON-HDL-C 142 MG/DL; NT-PRO BNP 221 PG/ML (<125); PHOSPHORUS LEVEL 2.7 MG/DL (2.5-4.9); POTASSIUM SERUM 3.9 MEQ/L (3.5-5.1); SODIUM LEVEL 141 MEQ/L (136-145); TRIGLYCERIDES LEVEL 153 MG/DL (<150)
== END ==
LOC: M PLALAB 11:48
PROVIDERS: ATTEND Internal Medicine Cardiovascular Disease
DX: I50.32 Chronic diastolic (congestive) heart failure (principal); Z68.35 Body mass index [BMI] 35.0-35.9, adult

== ENCOUNTER → 2020-07-05 | Outpatient (REF) | payer MEDICAID, OTHER ==
[2020-07-05 14:45] LABS: ALBUMIN 4.2 GM/DL (3.2-5.2); BILIRUBIN,TOTAL 0.5 MG/DL (0.2-1.0); CALCIUM LEVEL 10.3 MG/DL (8.5-10.1); CREATININE FOR GFR 1.03 MG/DL (0.55-1.30); GLOMERULAR FILTRATION RATE 59.2 (>51); POTASSIUM SERUM 3.9 MEQ/L (3.5-5.1); TOTAL PROTEIN 8.4 GM/DL (6.4-8.2)
[2020-07-05 15:06] LABS: MALB URINE SIEMENS 9.1 MG/L; MAU/CREAT RATIO 7.1 MCG/MG (0.0-30.0)
== END ==
LOC: M SFHCPLAZ 09:23
PROVIDERS: ATTEND Nurse Practitioner Family
DX: I11.9 Hypertensive heart disease without heart failure (principal)

== ENCOUNTER → 2020-07-06 | Outpatient (CLI) | payer MEDICAID, OTHER ==
--- NOTE | 2020-07-06 13:24 | REP ---
INDICATION: LUMP IN RIGHT UPPER ARM BICEP. COMPARISON: None. TECHNIQUE: Real-time sonographic evaluation of right lateral upper arm soft tissues performed at the site of a palpable lump. FINDINGS: There is a suspicion of a lobulated hypoechoic solid mass at the site of the palpable lump. It measures 4.7 x 2.3 x 5.8 cm. IMPRESSION: Suspect solid lobulated mass at the site of the palpable lump in the upper right arm laterally. This measures 4.7 x 2.3 x 5.8 cm. Recommend either biopsy or further evaluation with MRI with and without contrast. <Electronically signed by Soham Benitez > 07/06/20 1427
== END ==
LOC: M RAD 12:39
PROVIDERS: ATTEND Nurse Practitioner Family
DX: R22.31 Localized swelling, mass and lump, right upper limb (principal)

== ENCOUNTER → 2020-07-21 | Outpatient (CLI) | payer OTHER ==
[~2020-07-21] MED LIST changes: +AMLO1TAB25 PO; +ASPI81CH33 PO; +CHLO125TA PO; +LOSA100T50 PO
== END ==
LOC: M WHC 10:25
PROVIDERS: ATTEND Nurse Practitioner Family
DX: N63.20 Unspecified lump in the left breast, unspecified quadrant (principal); Z53.9 Procedure and treatment not carried out, unspecified reason

== ENCOUNTER → 2020-08-02 | Outpatient (REF) | payer OTHER ==
[~2020-08-02] MED LIST changes: -AMLO1TAB25 PO; -ASPI81CH33 PO; -CHLO125TA PO; -LOSA100T50 PO
== END ==
LOC: M SFHCWAGY 13:25
PROVIDERS: ATTEND Specialist
DX: Z12.4 Encounter for screening for malignant neoplasm of cervix (principal)

== ENCOUNTER → 2020-08-19 | Outpatient (CLI) | payer OTHER ==
[~2020-08-19] MED LIST changes: +AMLO1TAB25 PO; +ASPI81CH33 PO; +CHLO125TA PO; +LOSA100T50 PO
--- NOTE | 2020-08-19 18:33 | REPPI ---
INDICATION: RIGHT FOOT PAIN. COMPARISON: None. TECHNIQUE: Four views. FINDINGS: Four views of the right foot demonstrate a intra-articular fracture at the base of the proximal phalanx of the 3rd toe extending into the MTP joint.. No other fracture is seen. There is mild diffuse osteopenia. Achilles and plantar calcaneal spurring is noted and there is mild spurring at the 1st MTP joint.. No opaque foreign body noted. IMPRESSION: Intra-articular fracture at the base of the proximal phalanx of the 3rd toe. Osteoarthritic changes and heel spurring also noted.. <Electronically signed by Valeriano Ogden > 08/19/20 1436
== END ==
LOC: M PLAIMG 14:20
PROVIDERS: ATTEND Nurse Practitioner Family
DX: S92.514A Nondisplaced fracture of proximal phalanx of right lesser toe(s), initial encounter for closed fracture (principal); X58.XXXA Exposure to other specified factors, initial encounter; Y92.9 Unspecified place or not applicable

== ENCOUNTER → 2020-08-28 | Outpatient (CLI) | payer OTHER | LOC: M LABSMTC 09:13 | PROVIDERS: ATTEND Anesthesiology | DX: Z11.59 Encounter for screening for other viral diseases (principal) ==

== ENCOUNTER 2020-09-02 07:40 | Day surgery (SDC) | payer OTHER ==
[~2020-09-02] VITALS: Ht 152.4 cm; Wt 96.1 kg
[~2020-09-02 07:40] MED LIST changes: +CelecoXIB (CeleBREX) 100 MG CAP PO ONE; +LR 1,000 ML IV ONE
[2020-09-02] MEDS ORDERED: LIDOCAINE 2% 100MG/5ML SDV (FOR ANES.) As Ordered ONE (08:13)
[2020-09-02] MEDS ORDERED: MIDAZOLAM INJ 2MG/2ML VIAL (J2250 PER 1MG) As Ordered ONE (08:13)
[2020-09-02] MEDS ORDERED: propofoL 200 MG/20 ML VIAL As Ordered ONE (08:13)
[2020-09-02] MEDS ORDERED: ONDANSETRON 4MG/2ML VIAL As Ordered ONE (08:13)
[2020-09-02] MEDS ORDERED: fentaNYL 100 MCG/2 ML INJECTION (J3010) As Ordered ONE (08:13)
[2020-09-02] MEDS ORDERED: LIDOCAINE 1% SDV 30ML VIAL As Ordered ONE (08:51)
[2020-09-02] MEDS ORDERED: BUPIVACAINE HCL 0.25% 30ML VIAL As Ordered ONE (08:51)
[2020-09-02 11:20] VITALS: BP 126/76
== END 2020-09-02 11:27 | disposition home or self-care (01) ==
LOC: M SDC 07:40
PROVIDERS: ATTEND Surgery
DX: D17.21 Benign lipomatous neoplasm of skin and subcutaneous tissue of right arm (principal); I10 Essential (primary) hypertension; I25.2 Old myocardial infarction; Z79.82 Long term (current) use of aspirin; Z85.42 Personal history of malignant neoplasm of other parts of uterus; Z79.899 Other long term (current) drug therapy; E66.9 Obesity, unspecified
CPT/HCPCS: 11406; 88304; J2250; J2405; J3010

== ENCOUNTER → 2020-10-03 | Outpatient (CLI) | payer OTHER ==
[~2020-10-03] MED LIST changes: -CelecoXIB (CeleBREX) 100 MG CAP PO ONE; -LR 1,000 ML IV ONE
[2020-10-03 15:43] LABS: BASO # 0.1 10^3/uL (0.0-0.2); EOS # 0.2 10^3/uL (0.0-0.5); HEMATOCRIT 42.8 % (36.0-47.0); HEMOGLOBIN 14.2 g/dl (12.0-15.5); LYMPH % 24.2 % (24.0-44.0); MEAN CORPUSCULAR HEMOGLOBIN 31.7 pg (27.0-33.0); MEAN CORPUSCULAR HGB CONC 33.2 g/dl (32.0-36.5); MEAN CORPUSCULAR VOLUME 95.5 fl (80.0-96.0); MONO # 0.6 10^3/uL (0.0-0.8); MONO % 6.9 % (0.0-5.0); NEUTROPHILS # 5.2 10^3/uL (1.5-8.5); NEUTROPHILS % 64.7 % (36.0-66.0); PLATELET COUNT, AUTOMATED 354 10^3/uL (150-450); RED BLOOD COUNT 4.48 10^6/uL (4.00-5.40); WHITE BLOOD COUNT 8.1 10^3/uL (4.0-10.0)
[2020-10-03 16:10] LABS: ERYTHROCYTE SEDIMENTATION RATE 52 mm/hr (0-30)
[2020-10-03 16:25] LABS: ALBUMIN 4.3 GM/DL (3.2-5.2); ALT/SGPT 72 U/L (12-78); BILIRUBIN,TOTAL 0.4 MG/DL (0.2-1.0); BLOOD UREA NITROGEN 22 MG/DL (7-18); CALCIUM LEVEL 10.4 MG/DL (8.5-10.1); CARBON DIOXIDE LEVEL 30 MEQ/L (21-32); CHLORIDE LEVEL 102 MEQ/L (98-107); CREATININE FOR GFR 1.01 MG/DL (0.55-1.30); GLOMERULAR FILTRATION RATE > 60.0 (>51); GLUCOSE, FASTING 118 MG/DL (70-100); POTASSIUM SERUM 4.5 MEQ/L (3.5-5.1); RHEUMATOID FACTOR QUANT < 10.0 IU/ML (<15.0); SODIUM LEVEL 137 MEQ/L (136-145); TOTAL PROTEIN 8.1 GM/DL (6.4-8.2)
[2020-10-03 16:27] LABS: VITAMIN B12 LEVEL 1111 PG/ML
[2020-10-03 16:28] LABS: FOLATE > 24.0 NG/ML
[2020-10-07 13:18] LABS: ALBUMIN 4.52 GM/DL (3.29-5.55); ALBUMIN % 55.8 % (55.8-66.1); ALPHA-1-GLOBULIN % 3.6 % (2.9-4.9); ALPHA-1-GLOBULINS 0.29 GM/DL (0.17-0.41); ALPHA-2-GLOBULINS 1.04 GM/DL (0.42-0.99); ALPHA-2-GLOBULINS % 12.9 % (7.1-11.8); BETA-1-GLOBULINS 0.47 GM/DL (0.28-0.60); BETA-1-GLOBULINS % 5.8 % (4.7-7.2); BETA-2-GLOBULINS % 6.4 % (3.2-6.5); GAMMA GLOBULIN % 15.5 % (11.1-18.8)
[2020-10-07 13:19] LABS: BETA-2-GLOBULINS 0.52 GM/DL (0.19-0.55); GAMMA GLOBULINS 1.26 GM/DL (0.65-1.58)
[2020-10-09 14:20] LABS: ANCA-ATYPICAL <1:20 titer (Neg:<1:20); ANTI DS-DNA AB Negative (Negative); ANTINUCLEAR ANTIBODIES DIRECT Negative (Negative); CYTOPLASMIC NEUTROP AB ANCA-C <1:20 titer (Neg:<1:20); PERINUCLEAR AB ANCA-P <1:20 titer (Neg:<1:20); SJOGREN'S ANTI SS-A <0.2 AI (0.0-0.9); SJOGREN'S ANTI SS-B <0.2 AI (0.0-0.9); VITAMIN B1 LEVEL WHOLE BLOOD 296.9 nmol/L (66.5-200.0); VITAMIN B6,PYRIDOXAL PHOSPHATE 59.7 ug/L (2.0-32.8); VITAMIN E(ALPHA TOCOPHEROL) 22.2 mg/L (7.0-25.1)
== END ==
LOC: M PLALAB 11:58
PROVIDERS: ATTEND Psychiatry & Neurology Neurology
DX: G62.9 Polyneuropathy, unspecified (principal)

== ENCOUNTER → 2020-12-20 | Outpatient (CLI) | payer OTHER ==
[~2020-12-20] MED LIST changes: +PROHANCE 279.3MG/ML 15ML VIAL As Ordered ONE; +PROHANCE 279.3MG/ML 5ML VIAL As Ordered ONE
--- NOTE | 2020-12-20 16:09 | REP ---
INDICATION: DISP FX OF PROX PHALANX OF R LESS TOE. COMPARISON: Radiographs 08/19/2020. TECHNIQUE: Multiple sequences obtained in the axial, coronal and sagittal planes prior to and following the intravenous administration of 19 mL ProHance. FINDINGS: There is mild residual marrow edema and enhancement at the site of the prior fracture at the base of the 3rd proximal phalanx. The remaining osseous structures of the foot demonstrate normal bone marrow signal with no bone marrow edema or occult fracture. There is no other evidence of abnormal bone marrow enhancement. The tendons and ligaments at the ankle appear intact. The flexor and extensor tendons of the foot appear intact with no tenosynovitis. Plantar tendon is intact. There is no plantar fasciitis. In the dorsal subcutaneous soft tissues of the midfoot in the region of the palpable lump there is a subcutaneous ganglion cyst which does not demonstrate internal enhancement. This measures approximately 10 x 8 x 12 mm. A tract of fluid extends from this cyst into the region of the sinus tarsi along the lateral distal talus. There is no other oval nonenhancing ganglion cyst along the inferior aspect of the mid shaft of the 3rd metatarsal. This measures approximately 12 x 7 x 11 mm. IMPRESSION: Mild residual marrow edema enhancement at the site of the prior fracture at the base of the 3rd proximal phalanx. No other osseous abnormality is seen. Two nonenhancing ganglion cysts are seen as discussed above, 1 in the dorsal subcutaneous soft tissues of the midfoot in the region of the palpable lump, with an underlying tract of fluid extending to the region of the sinus tarsi along the lateral distal talus. The other is along the inferior margin of the mid shaft of the 3rd metatarsal. <Electronically signed by Soham Benitez > 12/20/20 2936
== END ==
LOC: M RAD 13:34
PROVIDERS: ATTEND Physician Assistant Surgical
DX: S92.511D Displaced fracture of proximal phalanx of right lesser toe(s), subsequent encounter for fracture with routine healing (principal)
CPT/HCPCS: 73720; A9576

== ENCOUNTER → 2020-12-27 | Outpatient (CLI) | payer OTHER ==
[~2020-12-27] MED LIST changes: -PROHANCE 279.3MG/ML 15ML VIAL As Ordered ONE; -PROHANCE 279.3MG/ML 5ML VIAL As Ordered ONE
--- NOTE | 2020-12-29 00:30 | ECWPNPC ---
PATIENT NAME: JOSELINE ORTIZ : 1965 GENDER: FEMALE VISIT DATE: 12/27/2020 DISCHARGE DATE: 12/27/20 1418 VISIT LOCKED DATE TIME: PHYSICIAN: FAUSTINO BRENNER PHYSICIAN PAGER NO: ACTIVE RESOURCE: FAUSTINO BRENNER REASON FOR APPOINTMENT 1. 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 PATIENT HAD MRI WHICH REVEALED DEGENERATIVE DISC DISEASE OF THE LUMBAR REGION. PATIENT DOES ADMIT TO RADICULAR SYMPTOMS. SHE DENIES PROCEDURES AND/OR MEDICATIONS THAT HAVE HELPED IN THE PAST. SHE DENIES TRAUMA TO THE AREA. FALL RISK SCREENING: SCREENING : NO FALLS REPORTED IN THE LAST YEAR , : NO FALLS REPORTED IN THE LAST YEAR. PAIN SCREENING: PATIENT HAS A COMPLAINT OF ACUTE OR CHRONIC PAIN :YES LOCATION OF PAIN:LOW BACK, LEFT HIP, RIGHT HIP INTENSITY OF PAIN (SCALE OF 1 TO 10):10 WHAT DOES YOUR PAIN FEEL LIKE:SHOOTING, OTHER PRESSURE DURATION:CONTINOUS, AWAKENS FROM SLEEP PAIN IS INCREASED BY:ACTIVITIES, PROLONGED STANDING PAIN IS DECREASED BY:USE OF PAIN MEDICATIONS, SITTING NAPROSEN, CYCLOBENZAPRINE, STRETCHING, WARM SHOWERS NURSING NOTE: - - -. PAIN CENTER INTAKE QUESTIONS: DO YOU HAVE A HISTORY OF MRSA? :NO DO YOU TAKE A BLOOD THINNERS? :NO DO YOU HAVE ANY BLEEDING DISORDERS? :NO ANY NEW NUMBNESS OR WEAKNESS IN YOUR LEGS OR ARMS? :YES PATIENT NOTICED AFTER SURGERY. ANY PACEMAKER,DEFIBRILLATOR, OR DORSAL COLUMN STIMULATOR? :NO DO YOU HAVE ANY RASHES OR OPEN SORES? :NO ARE YOU ALLERGIC TO IV DYE? :NO ARE YOU DIABETIC? :NO ANY NEW PROBLEMS WITH YOUR MEDICATIONS? :NO HAVE YOU RECEIVED A VACCINE IN THE PAST 30 DAYS? :NO DO YOU PLAN TO RECEIVE A VACCINE IN THE NEXT 21 DAYS? :NO DO YOU NEED ANY PRESCRIPTION? :NO DO YOU TAKE ANY IMMUNOSUPPRESSIVE MEDICATIONS? :NO CURRENT MEDICATIONS TAKING ASPIRIN EC 81 MG TABLET DELAYED RELEASE 1 TABLET ORALLY ONCE A DAY TAKING CHLORTHALIDONE 25 MG TABLET TAKE 1 2 (ONE HALF) TABLET BY MOUTH ONCE DAILY ORAL TAKING LOSARTAN POTASSIUM 100 MG TABLET TAKE 1 TABLET BY MOUTH ONCE DAILY ORAL TAKING FLEXERIL 10 MG 30 10 MG TABLETS ONE TABLET ORALLY EVERY 8 HOURS PRN PAIN TAKING CYCLOBENZAPRINE HCL 5 MG TABLET TAKE 1 TABLET BY MOUTH ONCE DAILY NEEDED ORAL TAKING AMLODIPINE BESYLATE 10 MG TABLET 1 TABLET ORALLY ONCE A DAY TAKING ESCITALOPRAM OXALATE 10 MG TABLET 1 TABLET ORALLY ONCE A DAY TAKING MULTIVITAMIN - TABLET 1 TABLET ORALLY ONCE A DAY TAKING JUANITO 500MG CAPSULE TAKING CALCIUM 1 TAB ORAL TAKING VITAMIN B12 100 MCG TABLET DIRECTED ORALLY MEDICATION LIST REVIEWED AND RECONCILED WITH THE PATIENT PAST MEDICAL HISTORY ESSENTIAL HYPERTENSION HISTORY OF ANEMIA HYPERTENSIVE HEART DISEASE WITHOUT HEART FAILURE STAGE 3 CHRONIC KIDNEY DISEASE ENDOMETRIAL CANCER STAGE 3 CHRONIC KIDNEY DISEASE ALLERGIES N.K.D.A. SURGICAL HISTORY C-SECTIONS 1988, 2000 CHOLECYSTECTOMY 2001 LEFT BARTHOLIN'S GLAND REMOVAL ENDOMETRIAL POLYP AND CURETTING 12/29/2019 ROBOTIC ASSIST FULL HYSTERECTOMY - DR ESPINAL ([facility]) 01/2020 LIPOMA REMOVAL-GISELLA 09/04 SOCIAL HISTORY GENERAL: TOBACCO USE ARE YOU A:NONSMOKER ARE YOU A:NONSMOKER LATEX QUESTIONNAIRE LATEX ALLERGY : HAVE YOU EVER DEVELOPED ANY TYPE OF REACTION AFTER HANDLING LATEX PRODUCTS SUCH RUBBER GLOVES, CONDOMS, DIAPHRAGMS, BALLOONS, SOCKS, OR UNDERWEAR?NO LATEX ALLERGY : HAVE YOU EVER DEVELOPED ANY TYPE OF REACTION DURING OR AFTER DENTAL APPOINTMENT, VAGINAL/RECTAL EXAMINATION, SURGICAL PROCEDURE, OR ANY OTHER EXPOSURE?NO LATEX RISK : HAVE YOU EVER HAD ANY DIFFICULTY BREATHING OR HIVES AFTER EATING OR HANDLING ANY FRUITS, OR VEGETABLES; SUCH KIWI, BANANAS, STONE FRUITS, OR CHESTNUTSNO LATEX RISK : DO YOU HAVE A PREVIOUS PERSONAL HISTORY OF MORE THAN NINE SURGERIES, SPINA BIFIDA, OR REPEATED CATHERIZATIONS? NO LATEX RISK : ARE YOU FREQUENTLY EXPOSED TO LATEX PRODUCTS IN YOUR OCCUPATION?NO DATE ASKED : 12/27/2020 ALCOHOL USE: NO. LUNG CANCER SCREENING SMOKING STATUS:NON SMOKER BMI CARE GOAL FOLLOW-UP ABOVE NORMAL BMI FOLLOW-UPDIETARY MANAGEMENT EDUCATION, GUIDANCE, AND COUNSELING ALCOHOL SCREENING DID YOU HAVE A DRINK CONTAINING ALCOHOL IN THE PAST YEAR?YES DID YOU HAVE A DRINK CONTAINING ALCOHOL IN THE PAST YEAR?YES HOW OFTEN DID YOU HAVE SIX OR MORE DRINKS ON ONE OCCASION IN THE PAST YEAR?NEVER (0 POINTS) HOW OFTEN DID YOU HAVE SIX OR MORE DRINKS ON ONE OCCASION IN THE PAST YEAR?NEVER (0 POINTS) HOW MANY DRINKS DID YOU HAVE ON A TYPICAL DAY WHEN YOU WERE DRINKING IN THE PAST YEAR?1 OR 2 (0 POINTS) HOW MANY DRINKS DID YOU HAVE ON A TYPICAL DAY WHEN YOU WERE DRINKING IN THE PAST YEAR?1 OR 2 (0 POINTS) HOW OFTEN DID YOU HAVE A DRINK CONTAINING ALCOHOL IN THE PAST YEAR?MONTHLY OR LESS (1 POINT) HOW OFTEN DID YOU HAVE A DRINK CONTAINING ALCOHOL IN THE PAST YEAR?MONTHLY OR LESS (1 POINT) POINTS1 POINTS1 INTERPRETATIONNEGATIVE INTERPRETATIONNEGATIVE RECREATIONAL DRUG USE DRUG USE?NO DRUG USE?NO CAFFEINE CAFFEINE USE?YES TEA DAILY SEXUAL HX HAD SEX IN THE LAST 12 MONTHS (VAGINAL, ORAL, OR ANAL)?YES WITHMEN ONLY USE PROTECTION?NO HIV / HEP-C SCREENING HIV TEST OFFERED TO PATIENT:YES DATE OFFERED:02/15/2020 TEST ACCEPTED:NO HEP-C TEST OFFERED TO PATIENT:YES DATE OFFERED:02/15/2020 REASON:PATIENT DECLINED TEST ACCEPTED:NO REASON:PATIENT DECLINED BROCHURE PROVIDED TO PATIENTYES HOAHAOISM [id number] CHURCH LANGUAGE LANGUAGES SPOKEN:TURKMEN EDUCATION LEVEL OF EDUCATION:PROFESSIONAL SCHOOLS/MASTERS/PHD LEARNING BARRIERS / SPECIAL NEEDS CHANGE FROM LAST VISIT?NO BARRIERS TO LEARNING?YES COMMENTS FOCUS HEARING IMPAIRED?NO VISION IMPAIRED?YES :CORRECTIVE LENSES COGNITIVELY IMPAIRED?NO READINESS TO LEARN?YES LEARNING PREFERENCES?NO LEARNING CAPABILITIES PRESENT?YES EMOTIONAL BARRIERS? TBI, PTSD, ANXIETY SPECIAL DEVICES?NO ENVIRONMENTAL DEPARTMENT MANAGER NEEDED?YES MARITAL STATUS: - ALS IN 2015. HOSPITALIZATION/MAJOR DIAGNOSTIC PROCEDURE CHILDBIRTH SURGICAL RELATED REVIEW OF SYSTEMS CONSTITUTIONAL: ANY RECENT FEVER NO . CHILLS NO . WEIGHT CHANGE OF UNKNOWN REASONS NO . GASTROENTEROLOGY: NEW UNEXPLAINABLE CHANGES IN BOWEL CONTROL NO . CONSTIPATION NO . GENITOURINARY: ANY NEW CHANGE IN BLADDER CONTROL? NO . NEUROLOGY: NEW ONSET DIZZINESS OR NEUROLOGICAL CHANGES NOT MENTIONED NO . NEW NUMBNESS OR PAIN PATTERNS NOT MENTIONED AND PERTINENT TO TODAY'S VISIT NO . CARDIOLOGY: NEW CHEST PRESSURE NO . PATIENT DENIES NO . RESPIRATORY: UNEXPLAINABLE COUGH NO . NEW SHORTNESS OF BREATH NO . VITAL SIGNS WT 217.6 LBS, HT 5'2", BMI 39.80 INDEX, BP 202/117 MM HG, REPEAT BP 196/101 MM HG, HR 102 /MIN, RR 20 /MIN, TEMP 96.5 F, OXYGEN SAT % 98%, SAFE IN ENV? (Y/N) YES, NA INITIALS SC 13:23, REVIEWED BY: [facility] WILL RECHECK PT'S BP.MANUAL BP RECHECKED. PROVIDER NOTIFIED. TRAVON RENNER MA. EXAMINATION GENERAL EXAMINATION: GENERALNO ACUTE DISTRESS, WELL NOURISHED AND HYDRATED. PSYCHAPPROPRIATE MOOD AND AFFECT . LUNGS:CLEAR TO AUSCULTATION BILATERALLY, NO WHEEZES, RHONCHI, RALES. HEART:NO MURMURS, REGULAR RATE AND RHYTHM. BACK:POINT TENDER BILATERAL LUMBAR SPINE, POSITIVE MODIFIED SLR BILATERALLY . ASSESSMENTS DEGENERATIVE DISC DISEASE, LUMBAR - M51.36 (PRIMARY) TREATMENT DEGENERATIVE DISC DISEASE, LUMBAR REFILL CYCLOBENZAPRINE HCL TABLET, 5 MG, 1 TABLET, ORALLY, TWICE DAILY NEEDED, 30 DAYS, 60, REFILLS 1 NOTES: 55-YEAR-OLD FEMALE PATIENT IN FOR INITIAL PAIN CONSULT REGARDING LOW BACK PAIN WITH RADICULOPATHY. DISCUSSED PROCEDURES VERSUS MEDICATIONS WITH PATIENT AND HER AND AT THIS TIME IT WAS DECIDED THAT SHE WOULD ATTEMPT TO TAKE HER CYCLOBENZAPRINE TWICE A DAY TO SEE IF THIS HELPS ALLEVIATE HER SYMPTOMS WITH FOLLOW-UP IN ONE MONTH TO DETERMINE EFFICACY OF TREATMENT. PATIENT HAS EXPRESSED UNDERSTANDING OF AND WAS IN AGREEMENT WITH TREATMENT PLAN. GIVEN TIME TO ASK QUESTIONS AND EXPRESS CONCERNS. PROCEDURE CODES FA211 ESTABILISHED PATIENT [facility] CHARGE DISPOSITION & COMMUNICATION FOLLOW UP 4 WEEKS (REASON: MEDICATION INCREASE) ELECTRONICALLY SIGNED BY PATRICIA KRAMER ON 12/28/2020 AT 10:12 AM EDT DISCLAIMER : THIS IS A VISIT SUMMARY EXTRACTED FROM THE [employer] CHART. IT IS NOT A COPY OF THE [employer] PROGRESS NOTE. EDMUNDO
== END ==
LOC: M PAIN 13:00
PROVIDERS: ATTEND Family Medicine
DX: M51.36 Other intervertebral disc degeneration, lumbar region (principal); I13.10 Hypertensive heart and chronic kidney disease without heart failure, with stage 1 through stage 4 chronic kidney disease, or unspecified chronic kidney disease; N18.30 Chronic kidney disease, stage 3 unspecified; C54.1 Malignant neoplasm of endometrium; Z79.82 Long term (current) use of aspirin; Z79.899 Other long term (current) drug therapy

== ENCOUNTER → 2021-02-07 | Outpatient (CLI) | payer OTHER ==
--- NOTE | 2021-02-09 01:14 | ECWPNPC ---
PATIENT NAME: JOSELINE ORTIZ : 1965 GENDER: FEMALE VISIT DATE: 02/07/2021 DISCHARGE DATE: 02/07/21 1423 VISIT LOCKED DATE TIME: PHYSICIAN: FAUSTINO BRENNER PHYSICIAN PAGER NO: ACTIVE RESOURCE: FAUSTINO BRENNER REASON FOR APPOINTMENT 1. 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 SHE RATES HER PAIN CURRENTLY AT A 6 OUT OF 10 AND DESCRIBES IT THROBBING. AT LAST CLINIC VISIT PATIENT'S FLEXERIL WAS INCREASED TO 10 MG 3 TIMES A DAY HOWEVER SHE STATES THE PHARMACY ONLY GAVE HER 5 MG TWICE A DAY. PATIENT ALSO ADMITS TO TAKING NAPROSYN 200 MG 4-6 TABLETS DAILY NEEDED FOR PAIN.. -. FALL RISK SCREENING: SCREENING : NO FALLS REPORTED IN THE LAST YEAR. PAIN SCREENING: PATIENT HAS A COMPLAINT OF ACUTE OR CHRONIC PAIN :YES LOCATION OF PAIN:LOW BACK INTENSITY OF PAIN (SCALE OF 1 TO 10):6 AVERAGE 9-10 WHAT DOES YOUR PAIN FEEL LIKE:THROBBING, OTHER WARM, FEELS HEAVY DURATION:CONTINOUS, CONSTANT, AWAKENS FROM SLEEP PAIN IS INCREASED BY:ACTIVITIES, PROLONGED STANDING PAIN IS DECREASED BY:USE OF PAIN MEDICATIONS, SITTING NAPROSYN HELPS SOME. NURSING NOTE: -. PAIN CENTER INTAKE QUESTIONS: DO YOU HAVE A HISTORY OF MRSA? :NO DO YOU TAKE A BLOOD THINNERS? :NO DO YOU HAVE ANY BLEEDING DISORDERS? :NO ANY NEW NUMBNESS OR WEAKNESS IN YOUR LEGS OR ARMS? :YES PATIENT NOTICED AFTER SURGERY. ANY PACEMAKER,DEFIBRILLATOR, OR DORSAL COLUMN STIMULATOR? :NO DO YOU HAVE ANY RASHES OR OPEN SORES? :NO ARE YOU ALLERGIC TO IV DYE? :NO ARE YOU DIABETIC? :NO ANY NEW PROBLEMS WITH YOUR MEDICATIONS? :NO HAVE YOU RECEIVED A VACCINE IN THE PAST 30 DAYS? :NO DO YOU PLAN TO RECEIVE A VACCINE IN THE NEXT 21 DAYS? :NO DO YOU NEED ANY PRESCRIPTION? :NO DO YOU TAKE ANY IMMUNOSUPPRESSIVE MEDICATIONS? :NO CURRENT MEDICATIONS TAKING ASPIRIN EC 81 MG TABLET DELAYED RELEASE 1 TABLET ORALLY ONCE A DAY TAKING CHLORTHALIDONE 25 MG TABLET TAKE 1 2 (ONE HALF) TABLET BY MOUTH ONCE DAILY ORAL TAKING LOSARTAN POTASSIUM 100 MG TABLET TAKE 1 TABLET BY MOUTH ONCE DAILY ORAL TAKING FLEXERIL 10 MG 30 10 MG TABLETS ONE TABLET ORALLY EVERY 8 HOURS PRN PAIN TAKING AMLODIPINE BESYLATE 10 MG TABLET 1 TABLET ORALLY ONCE A DAY TAKING ESCITALOPRAM OXALATE 10 MG TABLET 1 TABLET ORALLY ONCE A DAY TAKING MULTIVITAMIN - TABLET 1 TABLET ORALLY ONCE A DAY TAKING JUANITO 500MG CAPSULE TAKING CALCIUM 1 TAB ORAL TAKING VITAMIN B12 100 MCG TABLET DIRECTED ORALLY TAKING CYCLOBENZAPRINE HCL 5 MG TABLET 1 TABLET ORALLY TWICE DAILY NEEDED TAKING NAPROSYN 500 MG TABLET 200 MG. CAP 4-6 TABS ORALLY EVERY 12 HRS MEDICATION LIST REVIEWED AND RECONCILED WITH THE PATIENT PAST MEDICAL HISTORY MEDICAL HISTORY VERIFIED. ALLERGIES N.K.D.A. SURGICAL HISTORY C-SECTIONS 1988, 2000 CHOLECYSTECTOMY 2001 LEFT BARTHOLIN'S GLAND REMOVAL ENDOMETRIAL POLYP AND CURETTING 12/29/2019 ROBOTIC ASSIST [facility] 01/2020 LIPOMA REMOVAL-GISELLA 09/04 FAMILY HISTORY FATHER: , PANCERATIC CANCER MOTHER: ALIVE, UTERINE CANCER, DIABETES PATERNAL GRAND FATHER: PATERNAL GRAND MOTHER: MATERNAL GRAND FATHER: MATERNAL GRAND MOTHER: 2 BROTHER(S) , 1 SISTER(S) . 2DAUGHTER(S) - HEALTHY. FATHER: PANCREATIC CAMOTHER: DM TYPE 2, HEART DISEASE, STROKEPATERNAL GF: DEMENTIAPATERNAL GM: KIDNEY FAILUREMATERNAL GF: SCLEROSISMATERNAL GM: CANCERSISTER: HTN. SOCIAL HISTORY GENERAL: TOBACCO USE ARE YOU A:NONSMOKER LATEX QUESTIONNAIRE LATEX ALLERGY : HAVE YOU EVER DEVELOPED ANY TYPE OF REACTION AFTER HANDLING LATEX PRODUCTS SUCH RUBBER GLOVES, CONDOMS, DIAPHRAGMS, BALLOONS, SOCKS, OR UNDERWEAR?NO LATEX ALLERGY : HAVE YOU EVER DEVELOPED ANY TYPE OF REACTION DURING OR AFTER DENTAL APPOINTMENT, VAGINAL/RECTAL EXAMINATION, SURGICAL PROCEDURE, OR ANY OTHER EXPOSURE?NO LATEX RISK : HAVE YOU EVER HAD ANY DIFFICULTY BREATHING OR HIVES AFTER EATING OR HANDLING ANY FRUITS, OR VEGETABLES; SUCH KIWI, BANANAS, STONE FRUITS, OR CHESTNUTSNO LATEX RISK : DO YOU HAVE A PREVIOUS PERSONAL HISTORY OF MORE THAN NINE SURGERIES, SPINA BIFIDA, OR REPEATED CATHERIZATIONS? NO LATEX RISK : ARE YOU FREQUENTLY EXPOSED TO LATEX PRODUCTS IN YOUR OCCUPATION?NO DATE ASKED : 02/07/2021 ALCOHOL USE: NO. RECREATIONAL DRUG USE DRUG USE?NO LANGUAGE LANGUAGES SPOKEN:BOTH HUNGARIAN AND HEBREW LEARNING BARRIERS / SPECIAL NEEDS CHANGE FROM LAST VISIT?NO BARRIERS TO LEARNING?YES COMMENTS FOCUS HEARING IMPAIRED?NO VISION IMPAIRED?YES COGNITIVELY IMPAIRED?NO :CORRECTIVE LENSES READINESS TO LEARN?YES LEARNING PREFERENCES?NO LEARNING CAPABILITIES PRESENT?YES EMOTIONAL BARRIERS? TBI, PTSD, ANXIETY SPECIAL DEVICES?NO SALON DESIGNER NEEDED?YES HOSPITALIZATION/MAJOR DIAGNOSTIC PROCEDURE CHILDBIRTH SURGICAL RELATED REVIEW OF SYSTEMS CONSTITUTIONAL: ANY RECENT FEVER NO . CHILLS NO . WEIGHT CHANGE OF UNKNOWN REASONS NO . GASTROENTEROLOGY: NEW UNEXPLAINABLE CHANGES IN BOWEL CONTROL NO . CONSTIPATION NO . GENITOURINARY: ANY NEW CHANGE IN BLADDER CONTROL? NO . NEUROLOGY: NEW ONSET DIZZINESS OR NEUROLOGICAL CHANGES NOT MENTIONED NO . NEW NUMBNESS OR PAIN PATTERNS NOT MENTIONED AND PERTINENT TO TODAY'S VISIT NO . CARDIOLOGY: NEW CHEST PRESSURE NO . PATIENT DENIES NO . RESPIRATORY: UNEXPLAINABLE COUGH NO . NEW SHORTNESS OF BREATH NO . VITAL SIGNS WT 216.8 LBS, HT 5'2", BMI 39.65 INDEX, HR 98 /MIN, RR 18 /MIN, TEMP 96.8 F, OXYGEN SAT % 97%, SAFE IN ENV? (Y/N) YES, REVIEWED BY: DIANE RENNER MA. EXAMINATION GENERAL EXAMINATION: GENERALNO ACUTE DISTRESS, WELL NOURISHED AND HYDRATED. PSYCHAPPROPRIATE MOOD AND AFFECT . LUNGS:CLEAR TO AUSCULTATION BILATERALLY, NO WHEEZES, RHONCHI, RALES. HEART:NO MURMURS, REGULAR RATE AND RHYTHM. ASSESSMENTS DEGENERATIVE DISC DISEASE, LUMBAR - M51.36 (PRIMARY) TREATMENT DEGENERATIVE DISC DISEASE, LUMBAR NOTES: 55-YEAR-OLD FEMALE IN FOR CHRONIC PAIN FOLLOW-UP. GIVEN PRESENTING SYMPTOMS RECOMMEND STARTING FLEXERIL 10 MG 3 TIMES A DAY AND NAPROXEN 500 MG TWICE A DAY NEEDED FOR PAIN. WITH FOLLOW-UP IN 2 MONTHS. TO DETERMINE EFFICACY OF TREATMENT. PATIENT HAS EXPRESSED UNDERSTANDING OF AND WAS IN AGREEMENT WITH TREATMENT PLAN. GIVEN TIME TO ASK QUESTIONS AND EXPRESS CONCERNS. OTHERS START NAPROXEN TABLET, 500 MG, 1 TABLET WITH FOOD OR MILK NEEDED, ORALLY, EVERY 12 HRS, 30 DAYS, 60 TABLET, REFILLS 1 REFILL FLEXERIL 10 MG 30 TABLETS, 10 MG, ONE TABLET, ORALLY, EVERY 8 HOURS PRN PAIN, 30 DAYS, 90, REFILLS 1 NOTES: NAPROXEN MATERIAL WAS PRINTED. PROCEDURE CODES FA211 ESTABILISHED PATIENT [facility] CHARGE DISPOSITION & COMMUNICATION FOLLOW UP 2 MONTHS (REASON: BACK PAIN MED INCREASE) ELECTRONICALLY SIGNED BY PATRICIA KRAMER ON 02/08/2021 AT 08:53 AM EDT DISCLAIMER : THIS IS A VISIT SUMMARY EXTRACTED FROM THE [employer] CHART. IT IS NOT A COPY OF THE [employer] PROGRESS NOTE. EDMUNDO
== END ==
LOC: M PAIN 13:30
PROVIDERS: ATTEND Family Medicine
DX: M51.36 Other intervertebral disc degeneration, lumbar region (principal); Z79.82 Long term (current) use of aspirin; Z79.899 Other long term (current) drug therapy

== ENCOUNTER → 2021-05-04 | Outpatient (CLI) | payer OTHER ==
[2021-05-04 18:11] LABS: ALBUMIN 4.4 GM/DL (3.2-5.2); ALT/SGPT 71 U/L (12-78); BILIRUBIN,TOTAL 0.5 MG/DL (0.2-1.0); BLOOD UREA NITROGEN 16 MG/DL (7-18); CARBON DIOXIDE LEVEL 30 MEQ/L (21-32); CHLORIDE LEVEL 104 MEQ/L (98-107); CHOLESTEROL LEVEL 220 MG/DL (<200); CHOLESTEROL RISK RATIO 4.583 (<5); CREATININE FOR GFR 1.01 MG/DL (0.55-1.30); FREE T4 1.12 NG/DL (0.76-1.46); GLOMERULAR FILTRATION RATE > 60.0 (>51); GLUCOSE, FASTING 112 MG/DL (70-100); HDL CHOLESTEROL 48 MG/DL (>40); LDL CHOLESTEROL 138 MG/DL (<100); NON-HDL-C 172 MG/DL; POTASSIUM SERUM 4.7 MEQ/L (3.5-5.1); SODIUM LEVEL 139 MEQ/L (136-145); TRIGLYCERIDES LEVEL 168 MG/DL (<150)
[2021-05-04 18:16] LABS: MALB URINE SIEMENS 37.2 MG/L; MAU/CREAT RATIO 10.6 MCG/MG (0.0-30.0)
== END ==
LOC: M PLALAB 14:04
PROVIDERS: ATTEND Nurse Practitioner Family
DX: I11.9 Hypertensive heart disease without heart failure (principal)

== ENCOUNTER → 2021-05-09 | Outpatient (CLI) | payer OTHER ==
--- NOTE | 2021-05-09 15:12 | REP ---
INDICATION: LEFT GROIN PAIN. COMPARISON: None TECHNIQUE: AP and frog-lateral views FINDINGS: The hip joint space is symmetric and relatively well maintained. There is no fracture, dislocation, or subluxation. IMPRESSION: No acute abnormality no significant degenerative changes <Electronically signed by Mikey Gonzales > 05/09/21 [id number]
== END ==
LOC: M PLAIMG 14:36
PROVIDERS: ATTEND Physician Assistant Medical
DX: M25.552 Pain in left hip (principal)

== ENCOUNTER → 2021-05-10 | Outpatient (CLI) | payer OTHER | LOC: M PLALAB 12:11 | PROVIDERS: ATTEND Physician Assistant Medical | DX: M54.5 Low back pain (principal) ==

== ENCOUNTER → 2021-11-02 | Outpatient (CLI) | payer OTHER ==
[~2021-11-02] MED LIST changes: +LOSA100T45 PO; -LOSA100T50 PO
== END ==
LOC: M PAIN 11:15
PROVIDERS: ATTEND Nurse Practitioner Family
DX: Z53.21 Procedure and treatment not carried out due to patient leaving prior to being seen by health care provider (principal)

== ENCOUNTER → 2021-11-16 | Outpatient (CLI) | payer OTHER ==
[2021-11-16 13:46] LABS: HEMATOCRIT 46.1 % (36.0-47.0); HEMOGLOBIN 15.3 g/dl (12.0-15.5); MEAN CORPUSCULAR HEMOGLOBIN 30.3 pg (27.0-33.0); MEAN CORPUSCULAR HGB CONC 33.2 g/dl (32.0-36.5); MEAN CORPUSCULAR VOLUME 91.3 fl (80.0-96.0); PLATELET COUNT, AUTOMATED 372 10^3/uL (150-450); RED BLOOD COUNT 5.05 10^6/uL (4.00-5.40); WHITE BLOOD COUNT 8.5 10^3/uL (4.0-10.0)
[2021-11-16 14:19] LABS: ALBUMIN 4.4 GM/DL (3.2-5.2); ALT/SGPT 53 U/L (12-78); BILIRUBIN,TOTAL 0.4 MG/DL (0.2-1.0); BLOOD UREA NITROGEN 22 MG/DL (7-18); C REACTIVE PROTEIN QUANTITATIV 2.19 MG/DL (0.00-0.30); CALCIUM LEVEL 10.4 MG/DL (8.5-10.1); CARBON DIOXIDE LEVEL 32 MEQ/L (21-32); CHLORIDE LEVEL 102 MEQ/L (98-107); CHOLESTEROL LEVEL 223 MG/DL (<200); CHOLESTEROL RISK RATIO 3.982 (<5); CREATININE FOR GFR 0.84 MG/DL (0.55-1.30); GLOMERULAR FILTRATION RATE > 60.0 (>51); GLUCOSE, FASTING 123 MG/DL (70-100); HDL CHOLESTEROL 56 MG/DL (>40); LDL CHOLESTEROL 144 MG/DL (<100); NON-HDL-C 167 MG/DL; SODIUM LEVEL 138 MEQ/L (136-145); TOTAL PROTEIN 8.6 GM/DL (6.4-8.2); TRIGLYCERIDES LEVEL 117 MG/DL (<150)
[2021-11-16 17:00] LABS: FREE T4 1.21 NG/DL (0.76-1.46)
[2021-11-16 17:44] LABS: HEMOGLOBIN A1c 6.4 %
== END ==
LOC: M PLALAB 11:16
PROVIDERS: ATTEND Internal Medicine Hematology
DX: E88.81 Metabolic syndrome and other insulin resistance (principal)

== ENCOUNTER → 2021-12-19 | Outpatient (REF) | payer OTHER | LOC: M SFHCWAGY 19:02 | PROVIDERS: ATTEND Specialist | DX: C54.1 Malignant neoplasm of endometrium (principal) ==

== ENCOUNTER 2023-01-02 16:51 | Emergency (ER) | payer OTHER ==
[~2023-01-02] VITALS: Ht 157.5 cm; Wt 88.2 kg
[~2023-01-02 16:51] MED LIST changes: -MEGE40TA PO; +MEGE40TA3 PO
[2023-01-02] MEDS ORDERED: BUSP1TAB (17:09)
[2023-01-02] MEDS ORDERED: TIZA10TA (17:09)
[2023-01-02] MEDS ORDERED: NAPR-885 (17:09)
[2023-01-02 18:00] VITALS: BP 196/107
== END 2023-01-02 18:15 | disposition left against medical advice (07) ==
LOC: EDBD 16:51 → M ED 16:51
DX: R00.2 Palpitations (principal); Z53.21 Procedure and treatment not carried out due to patient leaving prior to being seen by health care provider